=== PATIENT | male | born 1970 | race African-American/Black ===

== ENCOUNTER 2023-12-29 22:36 | Emergency (ER) | payer MEDICAID ==
[~2023-12-29] VITALS: Ht 170.2 cm; Wt 49.0 kg
[2023-12-29 23:02] VITALS: BP 145/70; PULSE 70; RESP 16; TEMP 98; O2SAT 98
[2023-12-30] MEDS: MORPHINE SULFATE 4 MG/ML SYR IVP ONE (00:59)
[2023-12-30 01:12] LABS: BASOPHILS % (AUTO) 0.2 % (0.0-2.0); HEMATOCRIT 40.1 % (36-52); HEMOGLOBIN 13.5 g/dL (12.0-18.0); LYMPHOCYTES # (AUTO) 0.8 K/uL (2.0-11.5); LYMPHOCYTES % (AUTO) 5.4 % (20.5-51.1); MEAN CORPUSCULAR HEMOGLOBIN 34 pg (27-31); MEAN CORPUSCULAR HGB CONC 34 g/dL (33-37); MEAN CORPUSCULAR VOLUME 100.3 fL (80-94); MONOCYTES % (AUTO) 6.4 % (1.7-9.3); NEUTROPHILS # (AUTO) 13.6 K/uL (1.8-7.7); PLATELET COUNT (AUTO) 247 K/uL (140-450); RED CELL DISTRIBUTION WIDTH 15.8 % (11.6-13.7); WHITE BLOOD COUNT (AUTO) 15.5 K/uL (4.8-10.8)
[2023-12-30 01:45] LABS: ANION GAP 14.7 (8-16); CALCIUM 9.8 mg/dL (8.5-10.1); CARBON DIOXIDE 28.6 mmol/L (21-32); CREATININE 1.1 mg/dL (0.6-1.3); POTASSIUM 4.3 mmol/L (3.5-5.1)
[2023-12-30 06:08] VITALS: BP 145/70; PULSE 70; RESP 16; TEMP 98; O2SAT 98
== END 2023-12-30 06:08 | disposition short-term general hospital (02) ==
LOC: MED 22:36
DX: S02.652A Fracture of angle of left mandible, initial encounter for closed fracture (principal); H44.522 Atrophy of globe, left eye; R55 Syncope and collapse; Z20.822 Contact with and (suspected) exposure to COVID-19; W51.XXXA Accidental striking against or bumped into by another person, initial encounter; Y93.89 Activity, other specified; Y92.89 Other specified places as the place of occurrence of the external cause; Y99.8 Other external cause status
CPT/HCPCS: 36415; 70486; 80048; 85025; 87426; 96374; 99285; J2270